=== PATIENT | female | born 1980 | race Caucasian/White ===

== ENCOUNTER 2020-07-06 22:28 | Emergency (ER) | payer SELFPAY ==
[2020-07-06 23:16] LABS: HEMOGLOBIN 13.2 gm/dl (12.3-15.3); RED BLOOD COUNT 4.46 M/UL (4.00-5.10); WHITE BLOOD COUNT 9.1 K/UL (4.5-11.0)
[2020-07-06 23:46] LABS: BUN/CREATININE RATIO 18 (0-10)
== END 2020-07-07 04:12 | disposition home or self-care (01) ==
LOC: ER1 22:28
PROVIDERS: Family Medicine
DX: R07.2 Precordial pain (principal); M79.602 Pain in left arm; R20.2 Paresthesia of skin; R11.0 Nausea; I10 Essential (primary) hypertension
CPT/HCPCS: 70450; 71045; 80053; 82550; 82553; 83874; 83880; 84484; 85025; 85379; 85610; 85730; 93005; 96374; 99285; J1885